=== PATIENT | male | born 1975 | race Caucasian/White ===

== ENCOUNTER 2024-12-08 08:43 | Outpatient (CLI) | payer BC, SELFPAY | END 2024-12-08 08:44 | disposition home or self-care (01) | PROVIDERS: PCP Physician Assistant Medical; Visit Provider Emergency Medicine | DX: Z13.1 Encounter for screening for diabetes mellitus (principal); Z13.6 Encounter for screening for cardiovascular disorders; Z12.5 Encounter for screening for malignant neoplasm of prostate; Z13.820 Encounter for screening for osteoporosis | CPT/HCPCS: 80061; 82306; 82607; 82947; G0103 ==

== ENCOUNTER 2024-12-26 09:27 | Outpatient (CLI) | payer BC, SELFPAY ==
--- NOTE | 2024-12-26 10:50 | P.ANES_ITS ---
Anesthesia Charges Start Date/Time Anesthesia Start Date: 12/26/24 Anesthesia Start Time: 10:20 Stop Date/Time Anesthesia Stop Date: 12/26/24 Anesthesia Stop Time: 10:46 Coding CPT Codes CPT Codes: ATTILA LWR INTST NDPR NOS - [id number] ([id number]) P1 - NORMAL HEALTHY PATIENT, QK - ADVERTISING SALES EXECUTIVE 2-4 CNCRNT ANES PROC, QX - ASSEMBLER FLUORESCENT LIGHTS SVC W/ MED DIRECTION
--- NOTE | 2024-12-26 10:50 | W.ANESCHARGE ---
Anesthesia Charges Start Date/Time Anesthesia Start Date: 12/26/24 Anesthesia Start Time: 10:20 Stop Date/Time Anesthesia Stop Date: 12/26/24 Anesthesia Stop Time: 10:46 Coding CPT Codes CPT Codes: ATTILA LWR INTST NDWI NOS - [id number] ([id number]) P1 - NORMAL HEALTHY PATIENT, QK - TECHNICAL REPORT WRITER 2-4 CNCRNT ANES PROC, QX - BUSINESS INTELLIGENCE DEVELOPER SVC W/ MED DIRECTION
--- NOTE | 2024-12-26 12:02 | P.ANES_ITS ---
Anesthesia Charges Start Date/Time Anesthesia Start Date: 12/26/24 Anesthesia Start Time: 10:20 Stop Date/Time Anesthesia Stop Date: 12/26/24 Anesthesia Stop Time: 10:46 Coding CPT Codes CPT Codes: ATTILA LWR INTST NDVA NOS - [id number] ([id number]) P1 - NORMAL HEALTHY PATIENT, QX - ALLIANCE DIRECTOR SVHunter W/ MED DIRECTION, QK - TOWEL SORTER 2-4 CNCRNT ATTILA PROC
--- NOTE | 2024-12-26 12:02 | W.ANESCHARGE ---
Anesthesia Charges Start Date/Time Anesthesia Start Date: 12/26/24 Anesthesia Start Time: 10:20 Stop Date/Time Anesthesia Stop Date: 12/26/24 Anesthesia Stop Time: 10:46 Coding CPT Codes CPT Codes: ATTILA LWR INTST NDME NOS - [id number] ([id number]) P1 - NORMAL HEALTHY PATIENT, QX - SUPERVISOR MACHINING SVHunter W/ MED DIRECTION, QK - HAND CLOTH EXAMINER 2-4 CNCRNT ATTILA PROC
== END 2024-12-26 09:28 | disposition home or self-care (01) ==
LOC: OP CLINIC 09:27
PROVIDERS: PCP Physician Assistant Medical; Visit Provider Surgery
DX: Z12.11 Encounter for screening for malignant neoplasm of colon (principal); D12.5 Benign neoplasm of sigmoid colon; D12.8 Benign neoplasm of rectum
CPT/HCPCS: 00811; 45385; 88305; J2704